=== PATIENT | male | born 1965 | race African-American/Black ===

== ENCOUNTER → 2021-07-13 | Outpatient (CLI) | payer BC ==
--- NOTE | 2021-07-13 10:37 | US ---
EXAMINATION TYPE: US scrotum with doppler. Grayscale and color Doppler Duplex imaging performed of anh mann scrotum. DATE OF EXAM: 07/13/2021 COMPARISON: NONE CLINICAL HISTORY: R10.9 right flank pain, N50 testicular pain. Testicular pain. EXAM MEASUREMENTS: TESTICLES: Right Testicle: 4.4 x 2.6 x 2.0 cm Left Testicle: 4.1 x 3.0 x 1.7 cm Tiny hyperechoic focus seen within right testicle: 0.06 x 0.06 x 0.05 cm. Anechoic area seen medial right testicle: 0.2 x 0.2 x 0.2 cm. Anechoic area seen lateral left testicle: 0.3 x 0.2 x 0.2 cm. EPIDIDYMIS HEAD: Right Epididymis: 1.1 x 1.4 x 0.9 cm Left Epididymis: 1.0 x 1.1 x 1.3 cm Anechoic area seen within right epididymal head: 0.4 x 0.5 x 0.3 cm. Anechoic area seen within left epididymal head: 0.3 x 0.5 x 0.3 cm. Doppler performed to assess for testicular vascularity; bilateral color flow and waveforms are seen. Presence of hydroceles: Right: 2.7 x 1.3 x 0.6 cm. Left: 1.9 x 1.6 x 0.7 cm. Presence of varicoceles: Not seen. IMPRESSION: 1. Bilateral small testicular cysts. 2. Couple of tiny hyperechoic foci within the right testicle may be microlithiasis. 3. Small bilateral hydroceles. 4. Epididymal cyst
--- NOTE | 2021-07-13 10:38 | US ---
EXAMINATION TYPE: US kidneys/renal and bladder DATE OF EXAM: 07/13/2021 COMPARISON: NONE CLINICAL HISTORY: R10.9 right flank pain, N50 testicular pain. Right sided pain. EXAM MEASUREMENTS: Right Kidney: 10.7 x 5.7 x 4.4 cm Left Kidney: 10.4 x 5.4 x 5.0 cm Right Kidney: No hydronephrosis or masses seen Left Kidney: No hydronephrosis or masses seen Bladder: Anechoic. Bilateral Jets seen: Yes IMPRESSION: 1. Normal bilateral renal ultrasound
== END | disposition home or self-care (01) ==
LOC: RADUSWWP 09:20
PROVIDERS: ATTEND Internal Medicine
DX: R10.9 Unspecified abdominal pain (principal)
CPT/HCPCS: 76770; 76870; 93975

== ENCOUNTER 2021-11-29 21:01 | Emergency (ER) | payer BC ==
[2021-11-29 21:36] VITALS: RESP 18; TEMP 98.8
--- NOTE | 2021-11-29 23:03 | ED ---
General Adult HPI - General Chief complaint: Upper Respiratory Infection Stated complaint: Sore throat,Congestion,Wants covid screening Time Seen by Provider: 11/29/21 22:08 Source: patient Mode of arrival: ambulatory Limitations: no limitations - History of Present Illness Initial comments: This 56-year-old male percents emergency department requesting to get a COVID-19 test. Patient states many people as workup and testing positive for COVID-19 and over the last 2 days he has noticed intermittent scratchiness in his throat and "in my bronchioles." Patient denies any cough, nasal drainage, chest pain, shortness of breath, nausea, vomiting, fever, change in bowel or bladder, changes in vision, headache, weakness. - Related Data Home Medications Medication Instructions Recorded Confirmed Indomethacin [Indocin] 50 mg PO BID-W/MEALS PRN 11/29/21 11/29/21 Previous Rx's Medication Instructions Recorded Albuterol Sulfate [Proair Hfa] 1 - 2 puff INHALATION Q6HR PRN 11/29/21 #8.5 gm Allergies Allergy/AdvReac Type Severity Reaction Status Date / Time No Known Allergies Allergy Verified 11/29/21 22:58 Review of Systems ROS Statement: Those systems with pertinent positive or pertinent negative responses have been documented in the HPI. ROS Other: All systems not noted in ROS Statement are negative. Past Medical History Additional Past Medical History / Comment(s): gout History of Any Multi-Drug Resistant Organisms: None Reported Past Surgical History: No Surgical Hx Reported Past Psychological History: No Psychological Hx Reported Smoking Status: Never smoker Past Alcohol Use History: Rare Past Drug Use History: None Reported General Exam Limitations: no limitations General appearance: alert, in no apparent distress Head exam: Present: atraumatic, normocephalic Eye exam: Present: normal appearance, EOMI ENT exam: Present: normal exam, mucous membranes moist Neck exam: Present: full ROM. Absent: tenderness, meningismus Respiratory exam: Present: normal lung sounds bilaterally. Absent: respiratory distress, wheezes, rales, rhonchi, stridor Cardiovascular Exam: Present: regular rate, normal rhythm, normal heart sounds. Absent: systolic murmur, diastolic murmur, rubs, gallop, clicks GI/Abdominal exam: Present: soft, normal bowel sounds. Absent: distended, tenderness, guarding, rebound, rigid Extremities exam: Present: normal inspection, full ROM, normal capillary refill. Absent: tenderness, pedal edema, joint swelling, calf tenderness Back exam: Present: normal inspection, full ROM. Absent: tenderness, CVA tenderness (R), CVA tenderness (L) Neurological exam: Present: alert, oriented X3, CN II-XII intact Psychiatric exam: Present: normal affect, normal mood Skin exam: Present: warm, dry, intact, normal color. Absent: rash Course Vital Signs 11/29/21 11/29/21 11/29/21 21:31 22:10 23:21 Temperature 98.8 F 98.8 F Pulse Rate 81 76 Respiratory 18 18 18 Rate Blood Pressure 156/90 155/92 O2 Sat by Pulse 98 99 Oximetry EKG Findings - EKG Comments: EKG Findings:: Patient refused Medical Decision Making - Medical Decision Making This 56 year old male presents emergency department requesting to get tested for COVID-19. Patient was COVID-19 positive. Patient advised to get a chest x-ray and EKG to rule out any acute issues, however, patient refused and states he "does not want to use his money on that." Patient verbally stated he was aware of complications of declining EKG and chest x-ray after they were explained. Albuterol inhaler was sent to pharmacy. Strict return precautions given and patient verbally agreed to plan. Patient advised to follow-up with primary care provider next 24-48 hours. Patient advised to keep pulse oximeter from [facility] and to return to the emergency department with oxygen drops below 90%. Patient advised to take [id number] zinc, vitamin C, vitamin D and to use Tylenol or Motrin as directed for symptoms relief. Patient sent home in stable condition. Case discussed with . - Lab Data Lab Results 11/29/21 Range/Units 21:37 Coronavirus (PCR) Detected A (Not Detectd) Disposition Clinical Impression: COVID-19 Disposition: HOME SELF-CARE Condition: Stable Instructions (If sedation given, give patient instructions): Coronavirus Disease 2019 (COVID-19) Additional Instructions: Please return to the emergency department with any concerning, new, or worsening symptoms. Please follow up with primary care provider next 24-48 hours. Prescriptions: Albuterol Sulfate [Proair Hfa] 1 - 2 puff INHALATION Q6HR PRN #8.5 gm PRN Reason: Shortness Of Breath Is patient prescribed a controlled substance at d/c from ED?: No Referrals: Briseida Lovett MD [Primary Care Provider] - 1-2 days Time of Disposition: 23:03
[2021-11-29] MEDS ORDERED: INDOMETHACIN 25 MG CAP PO STA (23:18)
[2021-11-29 23:22] VITALS: BP 155/92; PULSE 76
== END 2021-11-29 23:22 | disposition home or self-care (01) ==
LOC: EC 21:01
DX: U07.1 COVID-19 (principal)
CPT/HCPCS: 87635; 99283

== ENCOUNTER 2025-05-22 20:35 | Emergency (ER) | payer BC, OTHER ==
[2025-05-22 20:39] VITALS: RESP 18; TEMP 98.5
--- NOTE | 2025-05-22 22:39 | ED ---
Recheck HPI - General Chief Complaint: Recheck/Abnormal Lab/Rx Stated Complaint: high blood pressure Time Seen by Provider: 05/22/25 20:50 Source: patient, RN notes reviewed Mode of arrival: ambulatory Limitations: no limitations - History of Present Illness Initial Comments: This is a 59-year-old male with history of hypertension and gout presenting for high blood pressure x 3 days. Patient has discovered his blood pressure was 170 systolic after not taking his amlodipine as prescribed. Patient otherwise denies symptoms. Denies headache, vision changes, dizziness, chest pain, dyspnea. Onset/Timin -: days(s) Associated Symptoms: none - Related Data Home Medications Medication Instructions Recorded Confirmed Indomethacin [Indocin] 50 mg PO BID-W/MEALS PRN 11/29/21 11/29/21 Previous Rx's Medication Instructions Recorded Albuterol Sulfate [Proair Hfa] 1 - 2 puff INHALATION Q6HR PRN 11/29/21 #8.5 gm Allergies Allergy/AdvReac Type Severity Reaction Status Date / Time No Known Allergies Allergy Verified 05/22/25 20:39 Review of Systems ROS Statement: Those systems with pertinent positive or pertinent negative responses have been documented in the HPI. ROS Other: All systems not noted in ROS Statement are negative. Past Medical History Past Medical History: Hypertension Additional Past Medical History / Comment(s): gout History of Any Multi-Drug Resistant Organisms: None Reported Past Surgical History: No Surgical Hx Reported Past Psychological History: No Psychological Hx Reported Smoking Status: Never smoker Past Alcohol Use History: Rare Past Drug Use History: None Reported General Exam Limitations: no limitations General appearance: alert, in no apparent distress Head exam: Present: atraumatic, normocephalic, normal inspection Eye exam: Present: normal appearance, PERRL, EOMI. Absent: scleral icterus, conjunctival injection, periorbital swelling ENT exam: Present: normal exam, mucous membranes moist Neck exam: Present: normal inspection. Absent: tenderness, meningismus, lymphadenopathy Respiratory exam: Present: normal lung sounds bilaterally. Absent: respiratory distress, wheezes, rales, rhonchi, stridor Cardiovascular Exam: Present: regular rate, normal rhythm, normal heart sounds. Absent: systolic murmur, diastolic murmur, rubs, gallop, clicks GI/Abdominal exam: Present: soft, normal bowel sounds. Absent: distended, tenderness, guarding, rebound, rigid Extremities exam: Present: normal inspection, full ROM, normal capillary refill. Absent: tenderness, pedal edema, joint swelling, calf tenderness Back exam: Present: normal inspection Neurological exam: Present: alert, oriented X3, CN II-XII intact Psychiatric exam: Present: normal affect, normal mood Skin exam: Present: warm, dry, intact, normal color. Absent: rash Course Vital Signs 05/22/25 05/22/25 05/22/25 20:36 22:55 23:17 Temperature 98.5 F Pulse Rate 91 98 102 H Respiratory 18 18 18 Rate Blood Pressure 207/98 198/116 162/102 O2 Sat by Pulse 98 100 Oximetry 05/23/25 05/23/25 00:00 00:59 Temperature Pulse Rate 96 90 Respiratory 18 18 Rate Blood Pressure 138/89 134/89 O2 Sat by Pulse 99 Oximetry Medical Decision Making - Medical Decision Making Was pt. sent in by a medical professional or institution (, PA, AUDIOVISUAL EQUIPMENT OPERATOR, urgent care, hospital, or half-way...) When possible be specific @ -No Did you speak to anyone other than the patient for history (EMS, parent, family, police, friend...)? What history was obtained from this source @ -No Did you review nursing and triage notes (agree or disagree)? Why? @ -I reviewed and agree with nursing and triage notes Were old charts reviewed (outside hosp., previous admission, EMS record, old EKG, old radiological studies, urgent care reports/EKG's, half-way records)? Report findings @ -No old charts were reviewed Differential Diagnosis (chest pain, altered mental status, abdominal pain women, abdominal pain men, vaginal bleeding, weakness, fever, dyspnea, syncope, headach e, dizziness, GI bleed, back pain, seizure, CVA, palpatations, mental health, musculoskeletal)? @ -Hypertensive urgency, hypertensive emergency, pheochromocytoma, EtOH withdrawal, this is not an exhaustive list EKG interpreted by me (3pts min.). @ -Sinus rhythm with LVH without ST deviation or T wave inversion. Ventricular rate 91 bpm, SOLIS 148 ms, QRS 102 ms, QTc 416 ms X-rays interpreted by me (1pt min.). @ -None done CT interpreted by me (1pt min.). @ -None done U/S interpreted by me (1pt. min.). @ -None done What testing was considered but not performed or refused? (CT, X-rays, U/S, labs)? Why? @ -None What meds were considered but not given or refused? Why? @ -None Did you discuss the management of the patient with other professionals (professionals i.e. , PA, AUDIOVISUAL EQUIPMENT OPERATOR, lab, RT, psych nurse, licensed social worker, final inspector paper, teacher, consular officer, high risk case manager)? Give summary @ -No Was smoking cessation discussed for >3mins.? @ -No Was critical care preformed (if so, how long)? @ -No Were there social determinants of health that impacted care today? How? (Homelessness, low income, unemployed, alcoholism, drug addiction, transportation, low edu. Level, literacy, decrease access to med. care, [facility], rehab)? @ -No Was there de-escalation of care discussed even if they declined (Discuss DNR or withdrawal of care, Hospice)? DNR status @ -No What co-morbidities impacted this encounter? (DM, HTN, Smoking, COPD, CAD, Cancer, CVA, ARF, Chemo, Hep., AIDS, mental health diagnosis, sleep apnea, morbid obesity)? @ -Hypertension Was patient admitted / discharged? Hospital course, mention meds given and route, prescriptions, significant lab abnormalities, going to OR and other pertinent info. @ -Patient initial blood pressure 207/98. Lab work notable for WBC 3.26, anion gap 15 and magnesium 1.4. Patient provided IV hydralazine and p.o. magnesium. Subsequent blood pressure 134/89 prior to discharge. Vies patient to continue amlodipine as previously prescribed and follow-up with PCP for ongoing management of hypertension. Discussed patient with Dr. Olsen. Undiagnosed new problem with uncertain prognosis? @ -No Drug Therapy requiring intensive monitoring for toxicity (Heparin, Nitro, Insulin, Cardizem)? @ -No Were any procedures done? @ -No Diagnosis/symptom? @ -Hypertensive urgency Acute, or Chronic, or Acute on Chronic? @ -Acute Uncomplicated (without systemic symptoms) or Complicated (systemic symptoms)? @ -Uncomplicated Side effects of treatment? @ -No Exacerbation, Progression, or Severe Exacerbation? @ -No Poses a threat to life or bodily function? How? (Chest pain, [place], [place], pneumonia, PE, COPD, DKA, ARF, appy, cholecystitis, CVA, Diverticulitis, Homicidal, Suicidal, threat to staff... and all critical care pts) @ -No - Lab Data Result diagrams: 05/22/25 23:12 05/22/25 23:12 Lab Results 05/22/25 05/22/25 Range/Units 23:12 23:12 WBC 3.26 L (4.50-10.00) 10*3/uL RBC 4.69 (4.40-5.60) 10*6/uL Hgb 13.3 (13.0-17.0) g/dL Hct 39.1 L (39.6-50.0) % MCV 83.4 (80.0-97.0) fL MCH 28.4 (27.0-32.0) pg MCHC 34.0 (32.0-37.0) g/dL Plt Count 177 (140-440) 10*3/uL MPV 9.6 (9.5-12.2) fL Immature Gran % (Auto) 0 % Neutrophils % 54.0 % Lymphocytes % 35.0 % Monocytes % 10.1 % Eosinophils % 0.3 % Basophils % 0.6 % Immature Gran # 0.00 (0.00-0.04) 10*3/uL Neutrophils # 1.76 L (1.80-7.70) 10*3/uL Lymphocytes # 1.14 (0.90-5.00) 10*3/uL Monocytes # 0.33 (0.20-1.00) 10*3/uL Eosinophils # 0.01 L (0.04-0.35) 10*3/uL Basophils # 0.02 (0.00-0.10) 10*3/uL Sodium 133 L (137-145) mmol/L Potassium 4.1 (3.5-5.1) mmol/L Chloride 92 L (98-107) mmol/L Carbon Dioxide 26 (22-30) mmol/L Anion Gap 15 mmol/L BUN 8 L (9-20) mg/dL Creatinine 0.51 L (0.66-1.25) mg/dL Est GFR (CKD-EPI)AfAm >90 (>60 ml/min/1.73 sqM) Est GFR (CKD-EPI)NonAf >90 (>60 ml/min/1.73 sqM) Glucose 92 (74-99) mg/dL Calcium 10.1 (8.4-10.2) mg/dL Magnesium 1.4 L (1.6-2.3) mg/dL Total Bilirubin 0.9 (0.2-1.3) mg/dL AST 38 (17-59) U/L ALT 41 (4-49) U/L Alkaline Phosphatase 87 (38-126) U/L Total Protein 7.7 (6.3-8.2) g/dL Albumin 4.8 (3.5-5.0) g/dL Disposition Clinical Impression: Nonadherence to medication, Hypertensive urgency Disposition: HOME SELF-CARE Condition: Good Instructions (If sedation given, give patient instructions): Hypertension (ED) Additional Instructions: Follow-up with PCP for ongoing management of hypertension. Take ant ihypertensive medication as prescribed daily. Is patient prescribed a controlled substance at d/c from ED?: No Referrals: None,Stated [Primary Care Provider] - 1-2 days Dario Rankin MD [STAFF PHYSICIAN] - 1-2 days Time of Disposition: 01:00
[2025-05-22] MEDS: hydrALAZINE HCL 20 MG/ML 1 ML VIAL IVP STA (23:11)
[2025-05-22 23:30] LABS: Basophils # (A) 0.02 10*3/uL (0.00-0.10); Basophils % (A) 0.6 %; Eosinophils # (A) 0.01 10*3/uL (0.04-0.35); Eosinophils % (A) 0.3 %; HCT 39.1 % (39.6-50.0); HGB 13.3 g/dL (13.0-17.0); Lymphocytes # (A) 1.14 10*3/uL (0.90-5.00); Lymphocytes % (A) 35.0 %; MCH 28.4 pg (27.0-32.0); MCHC 34.0 g/dL (32.0-37.0); MCV 83.4 fL (80.0-97.0); Monocytes # (A) 0.33 10*3/uL (0.20-1.00); Monocytes % (A) 10.1 %; Neutrophils # (A) 1.76 10*3/uL (1.80-7.70); Neutrophils % (A) 54.0 %; Platelet Count 177 10*3/uL (140-440); RBC 4.69 10*6/uL (4.40-5.60); RDW 14.0 % (11.5-14.5); WBC 3.26 10*3/uL (4.50-10.00)
[2025-05-22 23:41] LABS: ALT 41 U/L (4-49); AST 38 U/L (17-59); African American GFR (CKD) >90 (>60 ml/min/1.73 sqM); Albumin 4.8 g/dL (3.5-5.0); Alkaline Phosphatase 87 U/L (38-126); Anion Gap 15 mmol/L; Blood Urea Nitrogen 8 mg/dL (9-20); Calcium 10.1 mg/dL (8.4-10.2); Carbon Dioxide 26 mmol/L (22-30); Chloride 92 mmol/L (98-107); Glucose 92 mg/dL (74-99); Magnesium 1.4 mg/dL (1.6-2.3); Non-African American GFR(CKD) >90 (>60 ml/min/1.73 sqM); Potassium 4.1 mmol/L (3.5-5.1); Sodium 133 mmol/L (137-145); Total Protein 7.7 g/dL (6.3-8.2)
[2025-05-23 01:00] VITALS: BP 134/89; PULSE 90
[2025-05-23] MEDS: MAGNESIUM OXIDE 400 MG TAB PO STA (01:00)
== END 2025-05-23 01:05 | disposition home or self-care (01) ==
LOC: EC 20:35
DX: I16.0 Hypertensive urgency (principal); Z91.148 Patient's other noncompliance with medication regimen for other reason
CPT/HCPCS: 36415; 93005; 80053; 83735; 85025; 99283; 96374; J0360